=== PATIENT | male | born 1970 | race Two or more races ===

== ENCOUNTER → 2025-03-30 | Emergency (ER) | payer OTHER ==
[~2025-03-30] VITALS: Ht 175.3 cm; Wt 82.6 kg
[~2025-03-30] MED LIST: ATORVASTATIN CA10 MG PO; LOTREL 5-20 MG1 CAP PO
[2025-03-30 13:47] VITALS: BP 121/81; O2SAT 100
== END | disposition home or self-care (01) ==
LOC: ER 13:16
DX: K29.70 Gastritis, unspecified, without bleeding (principal)